=== PATIENT | female | born 1990 | race Caucasian/White ===

== ENCOUNTER 2022-12-10 02:26 | Emergency (ER) | payer OTHER ==
[~2022-12-10] VITALS: Ht 172.7 cm; Wt 95.5 kg
[~2022-12-10 02:26] MED LIST: PRENATAL TABLET PO
[2022-12-10 02:43] VITALS: TEMP 98.2
[2022-12-10 02:51] LABS: COLLECTION METHOD CLEAN CATCH
[2022-12-10 03:16] LABS: BASO # 0.1 K/mm3 (0.0-0.2); BASO % 0.6 % (0.0-2.0); EOS # 0.2 K/mm3 (0.0-0.7); GRAN # 6.5 K/mm3 (1.4-6.5); GRAN % 66.7 % (42.2-75.2); HEMOGLOBIN 12.4 g/dl (12.5-16.0); LYMPH # 2.4 K/mm3 (1.2-3.4); LYMPH % 24.4 % (20.0-51.0); MEAN CELL VOLUME 90 fl (80.0-100.0); MEAN CORPUSCULAR HEMOGLOBIN 32 pg (27-31); MEAN CORPUSCULAR HGB CONC 35 g/dl (33.0-37.0); MEAN PLATELET VOLUME 10.9 fl (7.4-10.4); MONO # 0.6 K/mm3 (0.1-0.6); PLATELET COUNT 221 K/mm3 (130-400); RED BLOOD COUNT 3.93 M/mm3 (4.10-5.30); REDCELL DISTRIBUTION WIDTH-CV 13.6 % (11.5-14.5)
[2022-12-10 03:16] LABS: MUCOUS Present (NOT PRESENT); PH 5.5 (5.0-8.5); SQUAMOUS EPITHELIAL 0-2 /hpf (0-10); URINE APPEARANCE Cloudy (CLEAR/HAZY); URINE BACTERIA None Seen /hpf (NONE SEEN); URINE COLOR Amber (YELLOW); URINE GLUCOSE Negative (NEGATIVE); URINE KETONE TRACE (NEGATIVE); URINE PROTEIN(semi-quant) 1+ (NEGATIVE); URINE RBC >50 /hpf (0-2); URINE UROBILINOGEN 0.2 E.U/dL (0.2-1.0)
[2022-12-10 03:17] LABS: URINE BLOOD 3+ (NEGATIVE); URINE NITRATE Negative (NEGATIVE)
[2022-12-10 03:21] LABS: HEMATOCRIT 35.4 % (37.0-47.0)
[2022-12-10 03:53] VITALS: BP 128/81; PULSE 80
== END 2022-12-10 03:54 | disposition home or self-care (01) ==
LOC: COL.ER 02:26
PROVIDERS: Emergency Medicine
DX: O20.9 Hemorrhage in early pregnancy, unspecified (principal); O99.011 Anemia complicating pregnancy, first trimester; Z3A.09 9 weeks gestation of pregnancy

== ENCOUNTER 2023-06-07 23:33 | Outpatient (CLI) | payer OTHER ==
[~2023-06-07] VITALS: Ht 172.7 cm; Wt 125.5 kg
[2023-06-07 23:50] VITALS: BP 148/79; PULSE 62; TEMP 97.9
--- NOTE | 2023-06-07 23:50 | NUR ---
2350 G2L1 34.6 WEEKS GEST TO LR3 WITH C/O NO MOVEMENT SINCE THIS AM. STATES HAS AN ANTERIOR PLACENTA AND WAS TOLD BY DR PFEIFFER TO COME IN TO HOSPITAL IF DOES NOT FEEL BABY MOVE LIFE USUAL. NO CONTRACTIONS. EFM ON. FHT BASELINE 130'S. ADM ASSESSMENT COMPLETED 0010 FHT BASELINE 130'S WITH ACCELS NOTED TO 150'S WITH MOVEMENT HEARD ON EFM. PT STATES DOES NOT FEEL BABY MOVING YET. DR HUMMEL HERE AND REPORT GIVEN. STATES MAY GO HOME AFTER ACCELS NOTED AND PT FEELS BABY MOVE. NO NEED FOR SVE.
[2023-06-08 00:10] VITALS: BP 140/72; PULSE 67
--- NOTE | 2023-06-08 00:20 | NUR ---
0020 MOVEMENT HEARD ON EFM AND PT STATES FEELS VERY MILD MOVEMENT. ACCELS NOTED WITH MOVEMENT. PT FEELING BETTER ABOUT BABY AND COMFORTABLE GOING HOME. DISMISSAL INSTRUCTIONS GIVEN. 0040 HOME WITH INSTRUCTIONS
== END 2023-06-08 00:40 | disposition home or self-care (01) ==
LOC: LDRO 23:33 → LDR 23:45 → LDRO 06-08 00:40
DX: O36.8190 Decreased fetal movements, unspecified trimester, not applicable or unspecified (principal); Z3A.00 Weeks of gestation of pregnancy not specified
CPT/HCPCS: OP